=== PATIENT | female | born 1980 | race African-American/Black ===

== ENCOUNTER 2016-06-06 16:03 | Emergency (ER) | payer OTHER ==
--- NOTE | ~2016-06-06 | EKG ---
PATIENT: CHIN ARRINGTON UNIT #: [id number] Ventricular Rate: 64 BPM Atrial Rate: 64 BPM P-R Interval: 176 ms QRS Duration: 94 ms Q-T Interval: 392 ms QTC Calculation(Bezet): 404 ms P [place]: 60 degrees Calculated R [place]: 14 degrees Calculated T [place]: 35 degrees Diagnosis Line: Normal sinus rhythm Diagnosis Line: Low voltage QRS Diagnosis Line: Otherwise normal ECG Diagnosis Line: No previous ECGs available Diagnosis Line: Confirmed by EVERARDO CLARKE MD ([id number]) on 06/09/2016 Diagnosis Line: 7:23:08 AM INTERPRETING MD: VINCE COLBY
--- NOTE | ~2016-06-06 | CR72 ---
[facility] A Service of [facility] & [facility] RADIOLOGY TEXT RESULTS PATIENT: CHIN ARRINGTON LOCATION: [facility] : 81 UNIT #: [id number] AGE: [address]: Zakiya Ryan MD SEX: F ORDER DR: [id number] [facility] [address] [place], [place] [address] [id number] MR#: [id number] Acc #: [id number] NAME: CHIN ARRINGTON : 1980 SEX: F STUDY DATE/TIME: 06/06/2016 16:18 UNIT: [facility] ROOM: STUDY DESCRIPTION: CR Chest Single View Portable Attending Physician: Zakiya Ryan M.D. Ordering Physician: Zakiya Ryan M.D. Primary Care Physician: Sal Abreu M.D. MEDICAL IMAGING REPORT This report is preliminary unless electronic signature is present EXAM Portable chest 06/06/2016 HISTORY 36-year-old female with chest pain for 1 week. COMPARISON None. FINDINGS Frontal chest demonstrates clear lungs. No pleural effusion or pneumothorax. Heart size and mediastinum within normal limits allowing for portable technique. Pulmonary vasculature unremarkable. IMPRESSION No acute cardiopulmonary findings Dictated by... Burt Yeung M.D. THIS IS AN ELECTRONICALLY VERIFIED REPORT Burt Yeung M.D. at 06/07/2016 6:03 AM JOSE/karina TD: 06/07/2016 03:40 JOB #: [id number] MEDICAL IMAGING REPORT COPY
--- NOTE | ~2016-06-06 | CT16 ---
[facility] A Service [facility] RADIOLOGY TEXT RESULTS PATIENT: CHIN ARRINGTON LOCATION: [facility] : 82 UNIT #: [id number] AGE: [address]: Zakiya Ryan MD SEX: F ORDER DR: [id number] [address] [address] [id number] E MR#: [id number] Acc #: [id number] NAME: CHIN ARRINGTON : 1980 SEX: F STUDY DATE/TIME: 06/06/2016 18:46 UNIT: [facility] ROOM: STUDY DESCRIPTION: CT Angio Chest for PE Attending Physician: Zakiya Ryan M.D. Ordering Physician: Zakiya Ryan M.D. Primary Care Physician: Sal Abreu M.D. MEDICAL IMAGING REPORT This report is preliminary unless electronic signature is present EXAM CTA chest PE protocol INDICATION Sudden onset back, neck and right arm pain 4 days ago. Elevated D-dimer level. PROCEDURE Contrast-enhanced CTA of the chest attention on opacification of the pulmonary arteries. 80 mL of Isovue-370. Coronal 3-D MIP and sagittal reformatted images were reconstructed and submitted. COMPARISON None. TECHNIQUE This CT examination was performed with one or more of the following radiation dose reduction techniques: automatic exposure control, adjustment of mA and/or kV according to patient size, and iterative reconstruction. FINDINGS Contrast bolus is not optimal but there is no evidence for pulmonary embolus. No evidence for acute aortic injury. No pericardial fluid or adenopathy. No acute findings in the included upper abdomen. The lungs are clear. No aggressive appearing bone lesion. IMPRESSION No acute findings in the chest. No evidence for pulmonary embolus. Lungs are clear. [facility] A Service [facility] RADIOLOGY TEXT RESULTS PATIENT: CHIN RARINGTON LOCATION: [facility] : 81 UNIT #: [id number] AGE: [address]: Zakiya Ryan MD SEX: F ORDER DR: Dictated by... Bobo Montes M.D. THIS IS AN ELECTRONICALLY VERIFIED REPORT Bobo Montes M.D. at 06/09/2016 7:22 AM ELISA/ana TD: 06/07/2016 13:28 JOB #: [id number] MEDICAL IMAGING REPORT COPY
[~2016-06-06 16:03] MED LIST: NO MEDICATIONS; PROTONIX PO; [UNRECOGNIZED DRUG - OTHER]
[2016-06-06 16:14] LABS: BASOPHIL# 0.1 X10e3 (0-0.3); BASOPHIL% 1.3 % (0-2.5); EOSINOPHIL% 0.7 % (0.0-7.0); HEMATOCRIT 37.4 % (35.0-45.0); HEMOGLOBIN 11.8 gm/dL (12.0-16.0); LYMPHOCYTE# 1.9 X10e3 (1.0-3.5); MEAN CELL VOLUME 83.4 FL (83-96); MEAN CORPUSCULAR HEMOGLOBIN 26.3 PG (28-34); MEAN CORPUSCULAR HGB CONC 31.5 g/dL (30-36); MEAN PLATELET VOLUME 7.3 FL (6.5-11.5); MONOCYTE# 0.5 X10e3 (0-1.0); MONOCYTE% 7.8 % (3.0-12.0); NEUTROPHIL# 3.5 X10e3 (1.5-7.1); NEUTROPHIL% 58.2 % (40-75); PLATELET COUNT 289 X10e3 (140-420); RED BLOOD COUNT 4.48 X10e (3.90-5.30); RED CELL DISTRIBUTION WIDTH 15.5 % (11.0-15.5)
[2016-06-06 16:16] LABS: DIFF IND NO
[2016-06-06 16:26] LABS: INR 0.9; PARTIAL THROMBOPLASTIN TIME 25.8 SECONDS (23.5-31.3); PROTHROMBIN TIME (PATIENT) 9.5 SECONDS (9.6-11.5)
[2016-06-06 16:36] LABS: ALBUMIN SERUM 3.8 g/dL (3.5-5.0); ALKALINE PHOSPHATASE 82 U/L (32-92); ALT (SGPT) 12 U/L (10-40); AST (SGOT) 16 U/L (10-42); BILIRUBIN, DIRECT 0.1 mg/dL (0.0-0.2); BILIRUBIN,INDIRECT 0.3 mg/dL (0.0-0.9); BILIRUBIN,TOTAL 0.4 mg/dL (0.2-2.0); BLOOD UREA NITROGEN 14 mg/dL (9-23); BUN/CREATININE RATIO 15.55; CALCIUM SERUM 9.7 mg/dL (8.4-10.2); CARBON DIOXIDE 28 mmol/L (22-31); CHLORIDE 105 mmol/L (100-111); CREATININE SERUM 0.9 mg/dL (0.6-1.4); GLOM FILT RATE Estimated ABOVE60 mL/min (>60); GLUCOSE FASTING 72 mg/dL (70-110); PROTEIN TOTAL SERUM 7.4 g/dL (6.0-8.3); SODIUM 140 mmol/L (135-145)
[2016-06-06 17:43] LABS: POC - CKMB <1.0 ng/mL (0.0-7.9); POC - TROPONIN <0.05 ng/mL (<=0.05)
== END 2016-06-06 19:40 | disposition home or self-care (01) ==
LOC: CED 16:03
PROVIDERS: Emergency Medicine
DX: R07.89 Other chest pain (principal); M79.601 Pain in right arm; G40.909 Epilepsy, unspecified, not intractable, without status epilepticus; K21.9 Gastro-esophageal reflux disease without esophagitis; D64.9 Anemia, unspecified; Z90.49 Acquired absence of other specified parts of digestive tract; Z98.890 Other specified postprocedural states
CPT/HCPCS: 36415; 71010; 71275; 80048; 80076; 82553; 84484; 84703; 85025; 85379; 85610; 85730; 93005; 96374; 99284; J1885; Q9967